=== PATIENT | male | born 1935 | race Caucasian/White ===

== ENCOUNTER 2017-07-26 12:43 | Inpatient (IN) | payer MEDICARE ==
[~2017-07-26] VITALS: Ht 167.6 cm; Wt 82.9 kg
[2017-07-26 12:45] VITALS: BP 144/90; PULSE 120; RESP 16; TEMP 98.4; O2SAT 98
[2017-07-26] MEDS ORDERED: MULTTAB67 PO (13:10)
[2017-07-26] MEDS ORDERED: SODIUM CHLORIDE 0.9% FLUSH 10 ML FLUSH IVF PRN (13:15)
--- NOTE | 2017-07-26 13:21 | PD ---
HPI Chief Complaint: Neuro Symptoms/ Deficits Time Seen by Provider: 13:05 Travel History International Travel<30 days: No Contact w/Intl Traveler<30days: No Traveled to known affect area: No History of Present Illness HPI This is an 82-year-old male with history of prostate cancer treated 10 years ago with radiation, in remission since then reportedly, who presents for evaluation. He reports over the past month he has had some weakness in the left leg. He has noticed a little bit of weakness in the left arm over the past several days as well. He was seen by neurologist Dr. Cervantes, had outpatient MRI imaging of the brain and lumbar spine without contrast performed yesterday at [facility]. The MRI of the brain reveals "posterior right frontal lobe mass with adjacent vasogenic edema. Vasogenic edema extends into the anterior right parietal lobe. There is associated local mass effect including sulcal effacement and partial effacement of the posterior right lateral ventricle body. No shift of midline structures. This posterior right frontal lobe mass suspicious for either primary or metastatic malignancy." The mass is measuring 3.8 cm AP, 2.3 cm transverse and 3.0 cm cranial caudad. There is no shift of midline structures. MRI of the lumbar spine reveals multilevel degenerative changes and department of multiple transiting nerve roots within their respective subarticular recess. The patient was encouraged to come here for admission, oncology evaluation. His primary care physician is Dr. Madrid. He denies any numbness in the extremities, numbness in the face, blurred vision , headache, slurred speech, facial droop. He denies chest pain, shortness of breath, abdominal pain, nausea, vomiting, fevers, chills. He does endorse occasional spasming sensation on the left leg. He has no other complaints at this time. [facility] Past Surgical History Other Surgery: Yes (VASECTOMY) Social History Alcohol Use: Yes (OCC) Tobacco Use: No Substance Use: No Allergies-Medications (Allergen,Severity, Reaction): Coded Allergies: No Known Allergies (Verified Allergy, Unknown, 07/26/17) Reported Meds & Prescriptions Reported Meds & Active Scripts Active Reported Multiple Vitamin 1 Tab 1 Tab PO DAILY Review of Systems Except as stated in HPI: all other systems reviewed are Neg Physical Exam Narrative GENERAL: Well-developed well-nourished male in no acute distress SKIN: Warm and dry. HEAD: Atraumatic. Normocephalic. EYES: Pupils equal and round. No scleral icterus. No injection or drainage. ENT: No nasal bleeding or discharge. Mucous membranes pink and moist. NECK: Trachea midline. No JVD. CARDIOVASCULAR: Regular rate and rhythm. No murmur appreciated. RESPIRATORY: No accessory muscle use. Clear to auscultation. Breath sounds equal bilaterally. GASTROINTESTINAL: Abdomen soft, non-tender, nondistended. Hepatic and splenic margins not palpable. MUSCULOSKELETAL: No obvious deformities. 3 out of 5 muscle strength left ankle dorsi and plantar flexion. 4/5 muscle strength left leg and hip flexion and extension, left arm gyroscopic instrument mechanic strength, arm flexion and extension, shoulder abduction and adduction. Remainder of strength examination is 5 out of 5 muscle strength. NEUROLOGICAL: Awake and alert. No obvious cranial nerve deficits. Motor grossly within normal limits. Normal speech. The patient has sensation to sharp and dull touch to the lower extremities. PSYCHIATRIC: Appropriate mood and affect; insight and judgment normal. Data Data Last Documented VS Vital Signs Date Time Temp Pulse Resp B/P (MAP) Pulse Ox O2 Delivery O2 Flow Rate FiO2 07/26/17 12:45 98.4 120 16 144/90 (108) 98 Orders Orders Electrocardiogram (07/26/17 13:11) Prothrombin Time / Inr (Pt) (07/26/17 13:11) Act Partial Throm Time (Ptt) (07/26/17 13:11) Complete Blood Count With Diff (07/26/17 13:11) Comprehensive Metabolic Panel (07/26/17 13:11) Chest, Single Ap (07/26/17 13:11) Ecg Monitoring (07/26/17 13:11) Iv Access Insert/Monitor (07/26/17 13:11) Oximetry (07/26/17 13:11) Sodium Chloride 0.9% Flush (Ns Flush) (07/26/17 13:15) Dexamethasone Inj (Decadron Inj) (07/26/17 14:00) Admit Order (Ed Use Only) (07/26/17 13:38) Labs Laboratory Tests Test 07/26/17 13:15 White Blood Count 8.9 TH/MM3 Red Blood Count 5.31 MIL/MM3 Hemoglobin 16.9 GM/DL Hematocrit 48.1 % Mean Corpuscular Volume 90.7 FL Mean Corpuscular Hemoglobin 31.8 PG Mean Corpuscular Hemoglobin Concent 35.0 % Red Cell Distribution Width 14.1 % Platelet Count 261 TH/MM3 Mean Platelet Volume 9.7 FL Neutrophils (%) (Auto) 74.9 % Lymphocytes (%) (Auto) 17.6 % Monocytes (%) (Auto) 6.3 % Eosinophils (%) (Auto) 0.7 % Basophils (%) (Auto) 0.5 % Neutrophils # (Auto) 6.7 TH/MM3 Lymphocytes # (Auto) 1.6 TH/MM3 Monocytes # (Auto) 0.6 TH/MM3 Eosinophils # (Auto) 0.1 TH/MM3 Basophils # (Auto) 0.0 TH/MM3 CBC Comment DIFF FINAL Differential Comment MDM Medical Decision Making Medical Screen Exam Complete: Yes Emergency Medical Condition: Yes Medical Record Reviewed: Yes Differential Diagnosis Primary intracranial malignancy versus metastatic malignancy versus intracranial abscess versus cyst versus CVA Narrative Course The patient will be placed on ECG monitoring and pulse oximetry. Plan is for basic lab work, chest x-ray, 12-lead EKG. Oncology, neurosurgery will be paged. 1338: Discussed the MRI findings with neurosurgeon electronic publisher Dr. Andrade who would like the patient admitted to his service, Decadron 6 mg IV every 8. Discussed these recommendations with the patient and at bedside who are agreeable. Diagnosis Primary Impression: Intracranial mass Additional Impressions: Left arm weakness Left leg weakness Admitting Information Admitting Physician Requests: Admit Bryan Winn Jul 26, 2017 13:21
[2017-07-26 13:39] LABS: AUTOMATED NEUTROPHIL # 6.7 TH/MM3 (1.8-7.7); BASOPHIL % 0.5 % (0.0-2.0); EOSINOPHIL # 0.1 TH/MM3 (0-0.4); EOSINOPHIL % 0.7 % (0.0-4.0); HEMATOCRIT 48.1 % (39.0-51.0); HEMO FLAGS DIFF FINAL; LYMPH % 17.6 % (9.0-44.0); LYMPHOCYTE # 1.6 TH/MM3 (1.0-4.8); MEAN CELL VOLUME 90.7 FL (80.0-100.0); MEAN CORPUSCULAR HEMOGLOBIN 31.8 PG (27.0-34.0); MONO % 6.3 % (0.0-8.0); NEUT % 74.9 % (16.0-70.0); PLATELET COUNT 261 TH/MM3 (150-450); RED BLOOD COUNT 5.31 MIL/MM3 (4.50-5.90); RED CELL DISTRIBUTION WIDTH 14.1 % (11.6-17.2); WHITE BLOOD COUNT 8.9 TH/MM3 (4.0-11.0)
[2017-07-26 13:47] LABS: APTT (PATIENT) 28.9 SEC (24.3-30.1)
[2017-07-26 13:55] LABS: ALT (GPT) 34 U/L (12-78); ANION GAP 8 MEQ/L (5-15); AST (GOT) 20 U/L (15-37); BICARBONATE 25.6 MEQ/L (21.0-32.0); BLOOD UREA NITROGEN 17 MG/DL (7-18); CHLORIDE 103 MEQ/L (98-107); GLOMERULAR FILTRATION RATE 86 ML/MIN (>89); POTASSIUM 3.7 MEQ/L (3.5-5.1); SODIUM (NA) 137 MEQ/L (136-145)
[2017-07-26 13:57] LABS: ALKALINE PHOSPHATASE 53 U/L (45-117); TOTAL BILIRUBIN ADULT 0.7 MG/DL (0.2-1.0)
--- NOTE | 2017-07-26 14:10 | HHI.HP ---
(Michael Abbott) [facility] Primary Care Physician Gildardo Madrid M.D. Chief Complaint: Weakness to the left lower leg and foot Muscle spasms to the left lower leg and foot History of Present Illness This is an 82-year-old male who presents to the emergency department at [facility] after having been encouraged to come to this facility following abnormal findings on an MRI of the brain yesterday () at [facility]. Per the EMR the MRI demonstrated a posterior right frontal lobe mass with vasogenic edema extending into the anterior right parietal lobe. There is associated local mass effect with effacement but no midline shift. The mass was suspicious for either a primary or metastatic malignancy. He also had an MRI of the lumbar spine that demonstrated multilevel degenerative changes. The patient reports a history of weakness to the left lower extremity below the knee for the past month as well as spasms to the area. He denies any pain, numbness or tingling associated with this. He denies any weakness to the left upper extremity but was told that when he has been evaluated some weakness had been noted. His and son report that there is swelling and coolness to the area as well. He does report four falls within the past month as well as one in April of this year. His son states that the patient does have difficulty getting up which the patient endorses. The patient was seen by Dr Cervantes (Neurology) for the weakness and he ordered the outpatient MRI. He does report a remote history of prostate cancer for which he was treated and that for the past ten years his PSA level was less than 0.5. (Michael Abbott) Review of Systems CONSTITUTIONAL: Patient denies any fever, chills, night sweats or changes in weight or appetite. HEENT: Patient is hard of hearing. He denies any blurry or double vision or any other visual difficulty. RESPIRATORY: Patient denies any shortness of breath, wheezing or productive cough. CARDIOVASCULAR: Patient has some swelling to the left lower leg. He denies any chest pain, palpitations or irregular heartbeat. GASTROINTESTINAL: Patient denies any abdominal pain, nausea, vomiting or incontinence of stool. GENITOURINARY: Patient has urgency. He denies any increase in frequency, dysuria or incontinence of urine. INTEGUMENTARY: Patient has a cata to the top of the head where he struck it in a fall. He denies any rashes, ulcerations or other lesions. MUSCULOSKELETAL: Patient has weakness below the left knee as well as spasms. He denies any pain to the neck, back or extremities or any other extremity weakness. HAEMATOLOGICAL/LYMPHATIC: Patient denies any bleeding tendencies or easy bruising. He denies any swollen glands. NEUROLOGICAL: Patient has weakness below the left knee. He denies any headache, dizziness, numbness, tingling or other weakness. PSYCHIATRIC: Patient denies any depression or anxiety. ENDOCRINE: Patient denies any increase in thirst, hunger or urination. He denies any intolerance to heat or cold. 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 Erectile dysfunction Prostate cancer Reflux Sciatica (40 yrs ago) Sleep apnea (not diagnosed) Elevated blood pressure (trending up per patient & ) Past Surgical History Vasectomy Active Ordered Medications Current Medications Medications (Trade) Dose Ordered Sig/Ariel Route Start Time Stop Time Status Last Admin (NS Flush) 2 ml UNSCH PRN IVF 07/26/17 13:15 (Decadron Inj) 6 mg Q8HR IV PUSH 07/26/17 14:00 Family History Father: Mesothelioma Mother: Early onset Alzheimer's Social History 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 HEENT: Normocephalic, small reddish cata to the right-sided crown NTTP. PERRLA 3 mm brisk, EOMI. Right TM obscured by cerumen, left TM pearly connelly, no otorrhea , no lesions to the canal or external ear. Nares moist & pink, no rhinorrhea. MMM & pink, no evident lesions, tongue midline to protrusion. NECK: Midline cervical spine NTTP, full active ROM w/o pain, no JVD, trachea midline. RESPIRATORY: CTAB w/o W/R/R, equal excursion, nonlaboured, on RA. CARDIOVASCULAR: S1S2 w/regular but rapid rate w/o M/G/R, radial & pedal pulses 2 + bilaterally, cap refill < 2 sec, 1+ pedal edema on left. Monitor is sinus tachycardia (101 to 124) w/o any ectopy noted. GASTROINTESTINAL: Abdomen rotund, soft, nontender, no palpable masses or organomegaly, positive bowel sounds to all quadrants. GENITOURINARY: Normal male genitalia. INTEGUMENTARY: Skin warm & dry, small reddish cata to the right-sided crown, no discolouration, rashes, ulcerations or other lesions. MUSCULOSKELETAL: RAHMAN but decreased to distal LLE, no evident deformity or clubbing. PSYCHIATRIC: Normal affect, readily interacts & smiles. NEUROLOGICAL: AAOx3. Speech clear & appropriate. Follows simple commands w/o difficulty. CN II-XII appear grossly intact except for VIII, patient does have a hearing aid in place. Sensation intact to light touch to the extremities. Motor strength: RUE: Deltoid, biceps, triceps, wrist flexors & extensors and hand intrinsics & extrinsics 5/5. RLE: Iliopsoas, quadriceps, hamstrings, tibialis anterior, tibialis posterior , peroneus longus & brevis, gastrocnemius and extensor hallucis longus 5/5. LUE: Deltoid: 5/5; Biceps: 4 to 4+/5; Triceps: 4 to 4+/5; Wrist flexors & extensors: 4+ to 5/5; Hand intrinsics & extrinsics: 4+/5 LLE: Iliopsoas: 5/5; Quadriceps: 4+/5; Hamstrings: 3+ to 4/5; Tibialis anterior: 0/5; Tibialis posterior: 0/5; Peroneus longus & brevis: 0/5; Gastrocnemius: 0/5; Extensor hallucis longus: 0/5. No ankle clonus. No Bennett's. Plantar response downward on right and appears neutral on left (patient pulled foot away). Laboratory Laboratory Tests Test 07/26/17 13:15 White Blood Count 8.9 Red Blood Count 5.31 Hemoglobin 16.9 Hematocrit 48.1 Mean Corpuscular Volume 90.7 Mean Corpuscular Hemoglobin 31.8 Mean Corpuscular Hemoglobin Concent 35.0 Red Cell Distribution Width 14.1 Platelet Count 261 Mean Platelet Volume 9.7 Neutrophils (%) (Auto) 74.9 Lymphocytes (%) (Auto) 17.6 Monocytes (%) (Auto) 6.3 Eosinophils (%) (Auto) 0.7 Basophils (%) (Auto) 0.5 Neutrophils # (Auto) 6.7 Lymphocytes # (Auto) 1.6 Monocytes # (Auto) 0.6 Eosinophils # (Auto) 0.1 Basophils # (Auto) 0.0 CBC Comment DIFF FINAL Differential Comment Prothrombin Time 11.0 Prothromb Time International Ratio 1.0 Activated Partial Thromboplast Time 28.9 Blood Urea Nitrogen 17 Creatinine 0.86 Random Glucose 216 Total Protein 7.6 Albumin 3.9 Calcium Level 8.9 Alkaline Phosphatase 53 Aspartate Amino Transf (AST/SGOT) 20 Alanine Aminotransferase (ALT/SGPT) 34 Total Bilirubin 0.7 Sodium Level 137 Potassium Level 3.7 Chloride Level 103 Carbon Dioxide Level 25.6 Anion Gap 8 Estimat Glomerular Filtration Rate 86 (Michael Abbott) Result Diagram: 07/26/175 07/26/171314 Caprini VTE Risk Assessment Caprini VTE Risk Assessment: Mod/High Risk (score >= 2) VTE Pharm Contraindication: Intracranial lesions Caprini Risk Assessment Model Point Value = 1 Point Value = 2 Point Value = 3 Point Value = 5 Age 41-60 Minor surgery BMI > 25 kg/m2 Swollen legs Varicose veins or History of unexplained or recurrent spontaneous Oral contraceptives or hormone replacement Sepsis (< 1 month) Serious lung disease, including pneumonia (< 1 month) Abnormal pulmonary function Acute myocardial infarction Congestive heart failure (< 1 month) History of inflammatory bowel disease Medical patient at bed rest Age 61-74 Arthroscopic surgery Major open surgery (> 45 min) Laparoscopic surgery (> 45 min) Malignancy Confined to bed (> 72 hours) Immobilizing plaster cast Central venous access Age >= 75 History of VTE Family history of VTE Factor V Leiden Prothrombin [id number] Lupus anticoagulant Anticardiolipin antibodies Elevated serum homocysteine Heparin-induced thrombocytopenia Other congenital or acquired thrombophilia Stroke (< 1 month) Elective arthroplasty Hip, pelvis, or leg fracture Acute spinal cord injury (< 1 month) Prophylaxis Regimen Total Risk Factor Score Risk Level Prophylaxis Regimen 0-1 Low Early ambulation 2 Moderate Order ONE of the following: *Sequential Compression Device (SCD) *Heparin 5000 units SQ BID 3-4 Higher Order ONE of the following medications: *Heparin 5000 units SQ TID *Enoxaparin/Lovenox 40 mg SQ daily (WT < 150 kg, CrCl > 30 mL/min) *Enoxaparin/Lovenox 30 mg SQ daily (WT < 150 kg, CrCl > 10-29 mL/min) *Enoxaparin/Lovenox 30 mg SQ BID (WT < 150 kg, CrCl > 30 mL/min) AND/OR *Sequential Compression Device (SCD) 5 or more Highest Order ONE of the following medications: *Heparin 5000 units SQ TID (Preferred with Epidurals) *Enoxaparin/Lovenox 40 mg SQ daily (WT < 150 kg, CrCl > 30 mL/min) *Enoxaparin/Lovenox 30 mg SQ daily (WT < 150 kg, CrCl > 10-29 mL/min) *Enoxaparin/Lovenox 30 mg SQ BID (WT < 150 kg, CrCl > 30 mL/min) AND *Sequential Compression Device (SCD) (Michael Abbott) Assessment and Plan Diagnosis: (1) Intracranial mass ICD Codes: R90.0 - Intracranial space-occupying lesion found on diagnostic imaging of central nervous system Status: Acute (2) Left leg weakness ICD Codes: R29.898 - Other symptoms and signs involving the musculoskeletal system Status: Acute (3) Left arm weakness ICD Codes: R29.898 - Other symptoms and signs involving the musculoskeletal system Status: Acute Assessment and Plan Impression: Posterior right frontal lobe mass. Patient is doing well in general. Left-sided weakness. Plan: Admit to Neurosurgery. MRI brain stealth w/o & w/contrast. Neuro checks q4h while awake. Vital signs q4h while awake. Regular diet. Mobilise w/assistance. PT & OT eval & tx. SCD bilaterally. (Michael Abbott) Attending Statement I have personally seen and examined the patient on the date of this note. Pertinent documentation and study results have been reviewed by the undersigned. I have personally developed the treatment plan and performed medical decision making. Agree with findings, exam, and treatment plan as noted above. On my examination 07/26/17 the patient has mostly mild left upper and moderate proximal, severe distal left lower extremity motor deficit. MRI images have been reviewed by the undersigned as well as with the patient and his family. Treatment options a been discussed. Plan to proceed with screening CT scan of the chest, abdomen, pelvis. If no other significant lesions are found, surgical intervention for biopsy versus resection of the lesion discussed with the family along with pros and cons of each. Decadron initiated. Non-chemical DVT prophylaxis pending possible surgery as well as increased risk of hemorrhage for neoplasm. Physical therapy consult placed All patient and family questions answered. (Chetan Andrade MD) Michael Abbott Jul 26, 2017 14:10 Chetan Andrade MD Jul 26, 2017 22:42
[2017-07-26] MEDS: DEXAMETHASONE SOD PHOS 4 MG/ML VIAL IV PUSH SCH ×2 (14:20→22:54)
[2017-07-26 14:21] VITALS: RESP 18; O2SAT 98
[2017-07-26 14:25] VITALS: BP 122/88; PULSE 107; RESP 18; O2SAT 97
--- NOTE | 2017-07-26 14:31 | RADRPT ---
EXAM DATE/TIME: 07/26/2017 13:47 [facility] COMPARISON: No previous studies available for comparison. INDICATIONS : Left side weakness. MEDICAL HISTORY : just found out mass on frontal lobe SURGICAL HISTORY : None. ENCOUNTER: Initial ACUITY: 1 day PAIN SCORE: 0/10 LOCATION: Bilateral chest FINDINGS: A single view of the chest demonstrates the lungs to be symmetrically aerated without evidence of mas s, infiltrate or effusion. The cardiomediastinal contours are unremarkable. Osseous structures are intact. CONCLUSION: 1. No acute cardiopulmonary disease. Fran Kay MD on July 26, 2017 at 14:29 Board Certified Radiologist. This report was verified electronically.
[2017-07-26] MEDS ORDERED: GADODIAMIDE PF 287 MG/ML 20 ML VIAL (for RAD MRI) IVCONTRAST ONE (16:17)
--- NOTE | 2017-07-26 16:47 | RADRPT ---
EXAM DATE/TIME: 07/26/2017 16:04 [facility] COMPARISON: No previous studies available for comparison. INDICATIONS : Mass. Left sided weakness. CONTRAST: 17 cc Omniscan (gadodiamide) IV MEDICAL HISTORY : None. SURGICAL HISTORY : Vasectomy. ENCOUNTER: Subsequent ACUITY: 1 day PAIN SCORE: 3/10 LOCATION: cranial TECHNIQUE: Multiplanar, multisequence MRI of the brain was performed both prior to and following the administrat ion of paramagnetic contrast. FINDINGS: There is a 3.7 x 2.2 x 3.3 cm enhancing mass in the right medial posterior parietal high convexities with an adjacent satellite lesion measuring 2.1 x 0.5 cm and moderate associated edema. Both lesions demonstrate decreased T1 and increased T2 signal. There is no significant adjacent subarachnoid or du ral enhancement. No significant herniation. No additional abnormal enhancement or focal mass are demo nstrated. There is overall moderate diffuse cerebral volume loss with associated ex vacuo dilatation of the lateral ventricles. No evidence for significant hydrocephalus. No extra-axial fluid collection s or hemorrhage. The cerebellum and brainstem are intact. The 4th ventricle is midline. The cerebell opontine angle is unremarkable. The cerebellar tonsils are normal in position. The visualized portio ns of the orbits and paranasal sinuses are unremarkable. CONCLUSION: 1. 3.7 x 2.2 x 3.3 cm intra-axial enhancing mass in the right medial posterior parietal high convexit ies with an adjacent small 2.1 x 2.5 cm satellite lesion and moderate associated edema. Differential considerations include metastatic disease versus GBM amongst other etiologies. No evidence for mening eal extension or carcinomatosis. No hydrocephalus or significant hemorrhage. Fran Kay MD on July 26, 2017 at 16:35 Board Certified Radiologist. This report was verified electronically.
[2017-07-26 17:10] VITALS: BP 140/86; PULSE 88; RESP 17; TEMP 97.7; O2SAT 97
[2017-07-26 20:00] VITALS: BP 124/79; PULSE 119; RESP 18; TEMP 98.1; O2SAT 94
[2017-07-27] VITALS: BP 100/59; PULSE 112; RESP 18; TEMP 99; O2SAT 94
[2017-07-27 04:00] VITALS: BP 136/84; PULSE 91; RESP 18; TEMP 98.2; O2SAT 94
--- NOTE | 2017-07-27 05:14 | EKG ---
Date Performed: 07/26/2017 Time Performed: 13:56:05 PTAGE: 82 years EKG: SINUS TACHYCARDIA MARKED LEFT AXIS DEVIATION POSSIBLE ANTERIOR MYOCARDIAL INFARCTION ABNORM AL ECG NO PREVIOUS TRACING DOCTOR: Daniele Demarco Interpretating Date/Time 07/27/2017 05:07:51
[2017-07-27] MEDS: DEXAMETHASONE SOD PHOS 4 MG/ML VIAL IV PUSH SCH ×3 (05:51→22:42)
[2017-07-27 08:00] VITALS: BP 129/75; PULSE 106; RESP 18; TEMP 97.2; O2SAT 94
[2017-07-27] MEDS ORDERED: IOHEXOL 350 MG/ML 10 ML VIAL (for RAD DIAG) IVCONTRAST ONE (08:52)
--- NOTE | 2017-07-27 09:17 | RADRPT ---
EXAM DATE/TIME: 07/27/2017 08:51 [facility] COMPARISON: No previous studies available for comparison. INDICATIONS : Evaluate for metastatic disease. IV CONTRAST: 91 cc Omnipaque 350 (iohexol) IV ; Cumulative dose for multiple exams. ORAL CONTRAST: No oral contrast ingested. RADIATION DOSE: 16.39 CTDIvol (mGy) ; Combined studies - Thorax/Abdomen/Pelvis MEDICAL HISTORY : Carcinoma, basal cell. Brain tumor. SURGICAL HISTORY : vasectomy. ENCOUNTER: Initial ACUITY: 1 day PAIN SCALE: 0/10 LOCATION: Bilateral abdomen TECHNIQUE: Volumetric scanning of the abdomen and pelvis was performed. Using automated exposure control and ad justment of the mA and/or kV according to patient size, radiation dose was kept as low as reasonably achievable to obtain optimal diagnostic quality images. DICOM format image data is available electro nically for review and comparison. FINDINGS: The limited portion of the lung base visualized is clear. There is some punctate, scattered low-attenuation lesions within the liver most likely representing s imple cyst. The spleen, pancreas, adrenal glands and left kidney are normal in appearance. Incidental note is mad e of a 1.2 cm simple cyst within the right kidney. There is no free intraperitoneal air. No free intraperitoneal fluid is identified. There is no retrop eritoneal lymphadenopathy. The aorta is normal in caliber. The visualized loops of small and large bowel demonstrate a moderate amount of stool within the colon but are otherwise unremarkable. No findings to indicate bowel obstruction are seen. The anterior abdominal wall is intact. No free intraperitoneal air or free intraperitoneal fluid is identified. There is no free fluid within the pelvis. No iliac or inguinal adenopathy is present. The visualized loops of small and large bowel within the pelvis are unremarkable. The visualized bony structures demonstrate mild degenerative changes but are otherwise intact. CONCLUSION: 1. There is some scattered low-attenuation lesions within the liver. The largest of these measures ap proximately 1.7 cm. They're most compatible with simple cysts. 2. No definite findings to indicate metastatic disease to the abdomen are identified. Sunil Duran MD on July 27, 2017 at 9:13 Board Certified Radiologist. This report was verified electronically.
--- NOTE | 2017-07-27 09:19 | RADRPT ---
EXAM DATE/TIME: 07/27/2017 08:51 [place] COMPARISON: No previous studies available for comparison. INDICATIONS : Evaluate for metastatic disease. IV CONTRAST: 91 cc Omnipaque 350 (iohexol) IV ; Cumulative dose for multiple exams. RADIATION DOSE: 16.39 CTDIvol (mGy) ; Combined studies - Thorax/Abdomen/Pelvis MEDICAL HISTORY : Carcinoma, basal cell. Brain tumor. SURGICAL HISTORY : vasectomy. ENCOUNTER: Initial ACUITY: 1 day PAIN SCALE: 0/10 LOCATION: Bilateral chest TECHNIQUE: Volumetric scanning of the chest was performed. Using automated exposure control and adjustment of t he mA and/or kV according to patient size, radiation dose was kept as low as reasonably achievable to obtain optimal diagnostic quality images. DICOM format image data is available electronically for review and comparison. Follow-up recommendations for detected pulmonary nodules are based at a minimum on nodule size and pa tient risk factors according to Fleischner Society Guidelines. FINDINGS: LUNGS: The examination demonstrates a 1.0 x 0.8 cm pleural-based nodule along the posterior aspect of the ri ght lower lobe. This is nonspecific in appearance. Follow up examination in 6 months to document stab ility would be warranted. The lungs are otherwise clear. PLEURA: There is no pleural thickening or pleural effusion. MEDIASTINUM: The heart is normal in size. There is atherosclerotic plaquing of the coronary arteries. AXILLAE: Within normal limits. No lymphadenopathy. SKELETAL: There are mild degenerative changes within the thoracic spine. MISCELLANEOUS: The visualized upper abdominal organs demonstrate no acute abnormality. CONCLUSION: 1. There is a 1 cm pleural-based nodule seen in the posterior aspect of the right lower lobe. This stewart s an appearance most consistent with scarring. Followup exam in 6 months document stability would be warranted. 2. The lungs are otherwise clear. Sunil Duran MD on July 27, 2017 at 9:16 Board Certified Radiologist. This report was verified electronically.
[2017-07-27 12:00] VITALS: BP 135/92; PULSE 97; RESP 18; TEMP 97.5; O2SAT 95
--- NOTE | 2017-07-27 12:56 | MB ---
cc: NATHANAEL ALVAREZ MD HERDEL, G. FREDERICK M.D. TRAPANI, VINCENTI C. M.D. DATE OF CONSULTATION: 07/27/2017 DATE OF : [address] Richard Madrid, [facility]. CONSULT REQUESTED BY: Dr. Andrade, Neurosurgery. REASON FOR CONSULTATION Intracranial mass measuring 3.7 cm identified in the right medial posterior parietal lobe, associated with significant Vasogenic edema. Findings concerning for primary malignancy of the central nervous system. CHIEF COMPLAINT Mr. Cline reports a six-week history of progressive weakness localized to the left leg and ankle. He also reports a five day history of progressive weakness of his left upper extremity. HISTORY OF PRESENT ILLNESS Mr. Cline is very pleasant 82-year-old male who is originally from the [facility]. He lives at home with his . 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 Mr. Cline reports being in his usual excellent state of health up until the late part of May 2017. He reports having traveled an extensive amount in the months prior and clocked over [address] [place] between [place] for speaking engagements. He began to notice weakness of his left foot starting in late May. He describes his foot as not been responsive. He denies numbness or pain. He reported these symptoms to Dr. Caceres nurse practitioner and he was prescribed corticosteroids as the cause of the weakness was thought to be inflammation. The patient was referred to orthopedic surgery and was evaluated by Dr. Kim who felt this was more for neurologic issue. The patient was then referred to Dr. Cervantes who recommended imaging studies of the lumbar spine and brain. Imaging studies were done last week and the patient was called on 07/26/2017 and advised to go directly to [facility] for further workup and evaluation due to findings of a mass in the parietal lobe. Upon presentation [place] he was noted on clinical exam to have weakness of the left upper extremity and left lower extremities. An MRI of the brain was repeated on 07/26/2017 with and without contrast. He was noted to have a 3.7 x 2.2 cm mass which was enhancing involving the right medial posterior parietal convexity. There was a smaller 2.1 x 2.5 cm satellite lesion with moderate edema associated with this. Findings were concerning for primary [employer]ARK [employer] malignancy. Since admission the patient has also undergone CT imaging of the abdomen and pelvis as well as chest. Other than benign appearing hepatic cysts and a scar in the lung. He was found to have no definite primary site in the in the torso identified. The patient has been initiated on corticosteroids for management of the vasogenic edema and he has been evaluated neurosurgery for possible craniotomy with excisional biopsy of the lesion. PAST MEDICAL HISTORY Early stage prostate carcinoma diagnosed in 2005 which was treated with external beam radiation. Borderline hypertension. Multiple non-melanoma cutaneous carcinomas including squamous cell and basal cell carcinoma of the scalp. PAST SURGICAL HISTORY Prostate biopsies. Vasectomy. Multiple excisions of non-melanoma skin malignancies. SOCIAL HISTORY The patient lives at home with his . He is a lifelong never smoker, he drinks about 3 ounces of wine two to three times a week. He is a retired from the [employer]. FAMILY HISTORY: The patient does have four children, he has a 46-year-old daughter with Down syndrome, his other three children are healthy. Father of mesothelioma Mom in her mid 60s of Alzheimer's disease. HEALTH CARE MAINTENANCE Colonoscopy was last performed 10 years ago, he was due this year. ALLERGIES NO KNOWN DRUG ALLERGIES. CURRENT INPATIENT MEDICATIONS Dexamethasone 6 mg IV q.8 h. REVIEW OF SYSTEMS 13-point review of systems were obtained the following the pertinent positives: The patient denies fevers, chills, night sweats, with, weight loss. HEENT: Denies headaches, blurry vision, difficulty swallowing or soreness in the throat. RESPIRATORY: Denies difficulty breathing, cough, hemoptysis, pleuritic chest pain. CARDIOVASCULAR SYSTEM: Denies angina-like chest pain, PND, orthopnea. GASTROINTESTINAL: Denies nausea, vomiting, diarrhea hematochezia, melena. GENITOURINARY: Denies dysuria, hematuria, urinary incontinence. MUSCULOSKELETAL: Denies any focal musculoskeletal aches and pains. CENTRAL NERVOUS SYSTEM: Reports focal weakness involving the left leg distally and of the left upper extremity. SKIN: No complaints. PHYSICAL EXAMINATION VITAL SIGN: Temperature 97.2 degrees Fahrenheit, heart rate 106 beats per minute, respiratory rate 18, blood pressure 129/75, O2 sats 94% on room air. GENERAL APPEARANCE: Mr. Cline is an elderly male, he is sitting up in bed, he appears to be no acute distress and has a pleasant disposition. HEAD, EYES, EARS, NOSE, AND THROAT: Head atraumatic, normocephalic, conjunctive are not pale sclerae anicteric, extraocular muscles intact, Pupils equal, round, reactive to light and accommodation. Oral exam no pharyngeal erythema. NECK: Neck exam no palpable cervical or supraclavicular adenopathy. RESPIRATORY: Good air movement bilaterally not breath sounds. CARDIOVASCULAR SYSTEM: Regular rate and rhythm, S1-S2. No obvious murmurs, gallops. ABDOMEN: Protuberant belly, soft and nontender, nondistended palpable organ enlargement specifically no hepatosplenomegaly. EXTREMITIES: Lower extremities; no pretibial edema or calf tenderness. CENTRAL NERVOUS SYSTEM: Right upper and lower extremities with 02/22 motor strength, muscle tone and strength. In the left lower extremity: The patient has decreased ability to flex the left foot, he is unable to extend the left foot. He has decreased muscle tone of the left calf. Left upper extremity. He has four x five strength. SKIN: No abnormalities identified. LABORATORY FINDINGS: Blood work dated 07/26/2017: WBC count 8.9, hemoglobin 17 gm/dl, hematocrit 48.1%, platelet count 261, absolute neutrophil count 6.7. Chemistries: Sodium 137, potassium 3.7, chloride 103, bicarb 25.6, BUN 17, creatinine 0.86, EGFR 86 mls per minute. Glucose to 10/26, calcium 8.9, total bilirubin 0.7, AST 20, ALT 34, alkaline phosphatase 53, albumin is 3.9. IMAGING STUDIES MRI of the brain with and without contrast dated 07/26/2017 indicates a 3.7 x 2.2 x 3.3 cm intraaxillial enhancing mass in the right medial posterior parietal convexity. There is an adjacent lesion which is 2.1 x 2.5 cm. Surrounding vasogenic edema is identified, no hydrocephalus or significant hemorrhages noted. CT scan of the thorax dated 07/27/2017: 1. There is a 1 cm pleural based nodule in the posterior aspect of the right lower lobe. This has an appearance consistent with scarring. The lungs are otherwise clear, mediastinum is otherwise clear. CT abdomen and pelvis with and without contrast: Indicates scattered low-attenuation lesions within the liver. The largest of these measures 1.7 cm. These are most compatible with hepatic simple cysts. No definite evidence of metastatic disease within the abdomen or pelvis, specifically no lymphadenopathy or adrenal lesions. ASSESSMENT Mr. Cline is an 82-year-old male with a 3.7 cm mass involving the right parietal lobe, the tumor is intra axial and sits high in the convexity. He presents with left lower extremity weakness which started about six weeks ago and also left upper extremity weakness which started about one week ago. The patient has no evidence of extracranial malignancy or pathology. He has been admitted to this hospital for neurosurgical evaluation. He is scheduled to undergo to undergo an open biopsy and possible excision at some point next week to identify this lesion. The primary differential diagnosis is a high-grade Glioma. RECOMMENDATIONS 1. Intra-axial mass with extensive vasogenic edema in the right parietal lobe of the brain: Agree with open biopsy and if needed, maximum face surgical resection. If pathologic findings on cold section indicates a glioblastoma multiforme I would prefer this the patient have a carmustine wafer placed in the tumor cavity. I did talk to the patient and his about the potential differential diagnoses which range from high-grade gliomas to intermediate and low grade gliomas, as well as primary [employer] lymphoma. I explained to them that treatment options vary depending on the diagnosis. I advised them to remain patient until we have final pathology available before we discussed the details of postoperative management. The patient and his understand. The oncology service will continue following with you. I would also reviewed the CT scan of the abdomen and pelvis as well as chest. There is no extracranial pathology identified. MD RADHA Mcintosh/amilcar /11:32 AM /12:28 PM
[2017-07-27 16:00] VITALS: BP 132/76; PULSE 102; RESP 18; TEMP 98.1; O2SAT 95
--- NOTE | 2017-07-27 17:24 | HHI.NSPN ---
History Chief Complaint: no new complaints Interval History 82-year-old male with approximately 1 month of progressive weakness initially left lower and more recently left upper extremity. Recent outpatient MRI with right parietal brain lesion. Exam Results Vital Signs Date Time Temp Pulse Resp B/P (MAP) Pulse Ox O2 Delivery O2 Flow Rate FiO2 07/27/17 16:00 98.1 102 18 132/76 (94) 95 07/26/17 14:25 Room Air Intake and Output 07/27/17 07/27/17 07/28/17 08:00 16:00 00:00 Intake Total 480 ml Output Total 200 ml 400 ml Balance -200 ml 80 ml Physical Examination Respirations clear to auscultation Cardiac regular without murmur Abdomen soft nontender No extremity edema Awake and alert oriented conversant and appropriate Speech is clear No anxiety or depression evident Extraocular movements intact Initially movement symmetric Sensation intact light touch all extremities Strength is mostly 4/5 left upper and 3-4/5 left lower extremity major flexion and extension groups except for absent tibialis anterior and 3/5 gastrocsoleus Medical Decision Making Impression and Plan Impression: 1. 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 CT scan chest abdomen and pelvis without significant abnormalities. Physical examination improved today with reduced left hemiparesis following Decadron administration. 2. Hyperglycemia, likely related to steroids Plan: Findings were discussed at length with the patient and his family in the room today. Oncology notes reviewed. Plan craniotomy for biopsy , possible tumor resection on 07/29/17. The procedure, wrist possible complications fully discussed with the patient and his family and all questions answered. Initiate insulin sliding scale with follow-up laboratory results Chetan Andrade MD Jul 27, 2017 17:24
[2017-07-27] MEDS ORDERED: DEXTROSE 50% IN WATER 50 ML VIAL(D50) IV PUSH PRN (17:30)
[2017-07-27] MEDS ORDERED: GLUCAGON 1 MG/ML VIAL OTHER PRN (17:30)
[2017-07-27 20:43] VITALS: BP 137/73; PULSE 102; RESP 24; TEMP 98.3; O2SAT 94
[2017-07-27] MEDS: INSULIN NovoLIN REGULAR SUPPLEMENTAL SCALE SQ SCH (21:00)
[2017-07-28] VITALS: BP 137/75; PULSE 89; RESP 20; TEMP 98.3; O2SAT 91
[2017-07-28 05:31] VITALS: BP 148/94; PULSE 90; RESP 20; TEMP 97.8; O2SAT 95
[2017-07-28] MEDS: DEXAMETHASONE SOD PHOS 4 MG/ML VIAL IV PUSH SCH ×3 (06:47→22:00)
[2017-07-28 08:00] VITALS: BP_SYST 140; BP_DIAS 92; BP_DIAS 97; PULSE 82; RESP 18; TEMP 97.2; O2SAT 92; O2SAT 97
[2017-07-28] MEDS: INSULIN NovoLIN REGULAR SUPPLEMENTAL SCALE SQ SCH ×4 (08:00→21:00)
[2017-07-28 09:07] LABS: BICARBONATE 24.1 MEQ/L (21.0-32.0); POTASSIUM 3.7 MEQ/L (3.5-5.1)
[2017-07-28] MEDS ORDERED: PNEUMOCOCCAL POLYVALENT INJ 25 MCG/0.5 ML SYR IM ONE (10:00)
--- NOTE | 2017-07-28 10:49 | PD.ONC.PN ---
Subjective Subjective Remarks "I'm a healthy 82 year old with a brain tumor" Afebrile Denies any acute complaints Objective Data Date Time Temp Pulse Resp B/P (MAP) Pulse Ox O2 Delivery O2 Flow Rate FiO2 07/28/17 08:00 97.2 82 18 140/92 (108) 97 07/28/17 08:00 97.2 82 18 140/97 (111) 92 07/28/17 05:31 97.8 90 20 148/94 (112) 95 07/28/17 00:00 98.3 89 20 137/75 (95) 91 07/27/17 20:43 98.3 102 24 137/73 (94) 94 07/27/17 16:00 98.1 102 18 132/76 (94) 95 07/27/17 12:00 97.5 97 18 135/92 (106) 95 07/28/17 07/28/17 07/28/17 07:00 15:00 23:00 Output Total 300 ml Balance -300 ml Result Diagram: 07/26/17 1315 07/28/17 0813 Laboratory Results Laboratory Tests Test 07/28/17 08:13 Blood Urea Nitrogen 25 MG/DL Creatinine 0.74 MG/DL Random Glucose 123 MG/DL Calcium Level 9.3 MG/DL Sodium Level 137 MEQ/L Potassium Level 3.7 MEQ/L Chloride Level 105 MEQ/L Carbon Dioxide Level 24.1 MEQ/L Anion Gap 8 MEQ/L Estimat Glomerular Filtration Rate 102 ML/MIN Administered Medications Medications (Trade) Dose Ordered Sig/Ariel Route PRN Reason Start Time Stop Time Status Last Admin Dose Admin Sodium Chloride (NS Flush) 2 ml UNSCH PRN IVF FLUSH AFTER USING IV ACCESS 07/26/17 13:15 07/26/17 14:20 Dexamethasone Sodium Phosphate (Decadron Inj) 4 mg Q8HR IV PUSH 07/27/17 22:00 07/28/17 06:47 Objective Remarks GENERAL: Elderly male resting in bed in no acute distress SKIN: Warm and dry. HEAD: Normocephalic. EYES: No injection or drainage. Wearing glasses NECK: Supple, trachea midline. No JVD or lymphadenopathy. CARDIOVASCULAR: Regular rate and rhythm without murmurs. RESPIRATORY: Clear anteriorly. Breathing unlabored. GASTROINTESTINAL: Abdomen soft, non-tender, nondistended. EXTREMITIES: No cyanosis. MUSCULOSKELETAL: Adequate muscle tone. NEUROLOGICAL: Awake and alert with normal speech. Strength in the right lower extremity 5/5 and 4/5 on the left. Upper extremity elevator constructor electric strengths are equal with only a slight reduction of strength on the left. Assessment/Plan Problem List: (1) Intracranial mass ICD Codes: R90.0 - Intracranial space-occupying lesion found on diagnostic imaging of central nervous system Status: Acute Plan: -- Pending surgery with Dr. Andrade tomorrow -- On Decadron 4 mg every 8 hours -- MRI of the brain with and without contrast on 07/26/17 shows a 3.7 x 2.2 x 3.3 cm intra-axial enhancing mass in the right medial posterior parietal convexity. There is an adjacent lesion which is 2.1 x 2.5 cm with surrounding vasogenic edema. Assessment Mr. Cline is an 82-year-old male who began to notice weakness of his left foot starting in late May. He describes his foot as not been responsive. He denies numbness or pain. He reported these symptoms to Dr. Caceres nurse practitioner and he was prescribed corticosteroids as the cause of the weakness was thought to be inflammation. The patient was referred to orthopedic surgery and was evaluated by Dr. Kim who felt this was more for neurologic issue. He was seen by Dr. Cervantes who ordered imaging that revealed a brain mass and he was subsequently directed to be admitted for neurosurgical evaluation. Plan 1. Continue Decadron for vasogenic edema. 2. Per Dr Andrade the patient will have craniotomy with biopsy and possible tumor resection tomorrow. 3. It was explained to the patient that the biopsy results may take several days once the surgery is complete. 4. Once pathology results are obtained we will be able to give further recommendations on treatment. 5. Continue to monitor neurological status Maggie Solis Jul 28, 2017 10:49
[2017-07-28 12:00] VITALS: BP 131/85; PULSE 91; RESP 18; TEMP 97.4; O2SAT 93
[2017-07-28] MEDS: METHOCARBAMOL 500 MG TAB PO PRN (13:58)
[2017-07-28 16:00] VITALS: BP 143/88; PULSE 84; RESP 18; TEMP 98; O2SAT 95
--- NOTE | 2017-07-28 19:02 | HHI.NSPN ---
History Chief Complaint: no new complaints Interval History 82-year-old male with approximately 1 month of progressive weakness initially left lower and more recently left upper extremity. Recent outpatient MRI with right parietal brain lesion. Exam Results Vital Signs Date Time Temp Pulse Resp B/P (MAP) Pulse Ox O2 Delivery O2 Flow Rate FiO2 07/28/17 16:00 98.0 84 18 143/88 (106) 95 07/26/17 14:25 Room Air Intake and Output 07/28/17 07/28/17 07/29/17 08:00 16:00 00:00 Output Total 300 ml Balance -300 ml Physical Examination Respirations clear to auscultation Cardiac regular without murmur Abdomen soft nontender No extremity edema Awake and alert oriented conversant and appropriate Speech is clear No anxiety or depression evident Extraocular movements intact Initially movement symmetric Sensation intact light touch all extremities Strength is mostly 4/5 left upper and left lower extremity major flexion and extension groups except for one/5 left tibialis anterior and 3/5 gastrocsoleus Lab, Micro, Other Results Laboratory Tests Test 07/28/17 08:13 Blood Urea Nitrogen 25 MG/DL Creatinine 0.74 MG/DL Random Glucose 123 MG/DL Calcium Level 9.3 MG/DL Sodium Level 137 MEQ/L Potassium Level 3.7 MEQ/L Chloride Level 105 MEQ/L Carbon Dioxide Level 24.1 MEQ/L Anion Gap 8 MEQ/L Estimat Glomerular Filtration Rate 102 ML/MIN Medical Decision Making Impression and Plan Impression: 1. 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 CT scan chest abdomen and pelvis without significant abnormalities. Physical examination remains improved today with reduced left hemiparesis following Decadron administration. 2. Hyperglycemia, likely related to steroids Plan: Findings were discussed at length with the patient and his family in the room today. Oncology notes reviewed. Plan craniotomy for biopsy , possible tumor resection on 07/29/17. The procedure, risks, possible complications fully discussed with the patient and his family and all questions answered. Scheduling discussed again with the operating room and with the patient and family today. In order to arrange technical support for frameless stereotactic imaging for the operating room, the surgery is tentatively scheduled for Chetan Andrade MD Jul 28, 2017 19:02
[2017-07-28 20:00] VITALS: BP 149/96; PULSE 93; RESP 22; TEMP 97.2; O2SAT 95
[2017-07-29] VITALS: BP 133/60; PULSE 85; RESP 18; TEMP 97.3; O2SAT 96
[2017-07-29 04:40] VITALS: BP 128/80; PULSE 72; RESP 19; TEMP 98.8; O2SAT 96
[2017-07-29] MEDS: DEXAMETHASONE SOD PHOS 4 MG/ML VIAL IV PUSH SCH ×3 (05:41→21:41)
[2017-07-29 08:00] VITALS: BP 141/93; PULSE 83; RESP 18; TEMP 97.4; O2SAT 95
[2017-07-29] MEDS: INSULIN NovoLIN REGULAR SUPPLEMENTAL SCALE SQ SCH ×4 (08:00→21:48)
[2017-07-29 12:07] VITALS: BP 145/86; PULSE 90; RESP 18; TEMP 97.1; O2SAT 95
--- NOTE | 2017-07-29 13:05 | HHI.NSPN ---
(Michael Abbott) History Chief Complaint: Still with left-sided weakness. (Michael Abbott) Interval History 07/26: This is an 82-year-old male who presents to the emergency department at [facility] after having been encouraged to come to this facility following abnormal findings on an MRI of the brain yesterday () at [facility]. Per the EMR the MRI demonstrated a posterior right frontal lobe mass with vasogenic edema extending into the anterior right parietal lobe. There is associated local mass effect with effacement but no midline shift. The mass was suspicious for either a primary or metastatic malignancy. He also had an MRI of the lumbar spine that demonstrated multilevel degenerative changes. The patient reports a history of weakness to the left lower extremity below the knee for the past month as well as spasms to the area. He denies any pain, numbness or tingling associated with this. He denies any weakness to the left upper extremity but was told that when he has been evaluated some weakness had been noted. His and son report that there is swelling and coolness to the area as well. He does report four falls within the past month as well as one in April of this year. His son states that the patient does have difficulty getting up which the patient endorses. The patient was seen by Dr Cervantes (Neurology) for the weakness and he ordered the outpatient MRI. He does report a remote history of prostate cancer for which he was treated and that for the past ten years his PSA level was less than 0.5. 07/29: The patient is sitting in the chair with his family in the room. He says he is doing good this afternoon. He reports that he still has the weakness of the left but does feel the upper extremity is stronger. He states that the muscle spasms/cramps he was having have improved after starting the Baclofen. (Michael Abbott) System Review Comments CONSTITUTIONAL: Patient denies any fever or chills. HEENT: Patient is hard of hearing. He denies any blurry or double vision or any other visual difficulty. RESPIRATORY: Patient denies any shortness of breath, wheezing or productive cough. CARDIOVASCULAR: Patient denies any chest pain, palpitations or irregular heartbeat. GASTROINTESTINAL: Patient denies any abdominal pain, nausea, vomiting or incontinence of stool. GENITOURINARY: Patient has urgency. He denies any incontinence of urine. INTEGUMENTARY: Patient has a cata to the top of the head where he struck it in a fall. He denies any rashes, ulcerations or other lesions. MUSCULOSKELETAL: Patient has weakness below the left knee as well as spasms which have improved. He feels the left arm is stronger. He denies any pain to the neck, back or extremities or any other extremity weakness. NEUROLOGICAL: Patient has weakness below the left knee and some to the left arm. He denies any headache, dizziness, numbness, tingling or other weakness. (Michael Abbott) Exam Results 07/27/17 07/27/17 07/28/17 07/28/17 07/29/17 07/29/17 06:00 18:00 06:00 18:00 06:00 18:00 Intake Total 240 ml 480 ml 740 ml Output Total 400 ml 1045 ml 300 ml 450 ml Balance -160 ml -565 ml -300 ml 290 ml Intake Oral 240 ml 480 ml 740 ml Output Urine Total 400 ml 1045 ml 300 ml 450 ml # Voids 3 3 1 # Bowel Movements 0 0 0 1 Vital Signs Date Time Temp Pulse Resp B/P (MAP) Pulse Ox O2 Delivery O2 Flow Rate FiO2 07/29/17 12:07 97.1 90 18 145/86 (105) 95 07/29/17 08:00 97.4 83 18 141/93 (109) 95 07/29/17 04:40 98.8 72 19 128/80 (96) 96 07/29/17 00:00 97.3 85 18 133/60 (84) 96 07/28/17 20:00 97.2 93 22 149/96 (113) 95 07/28/17 16:00 98.0 84 18 143/88 (106) 95 07/28/17 12:00 97.4 91 18 131/85 (100) 93 07/28/17 08:00 97.2 82 18 140/92 (108) 97 07/28/17 08:00 97.2 82 18 140/97 (111) 92 07/28/17 05:31 97.8 90 20 148/94 (112) 95 07/28/17 00:00 98.3 89 20 137/75 (95) 91 07/27/17 20:43 98.3 102 24 137/73 (94) 94 07/27/17 16:00 98.1 102 18 132/76 (94) 95 07/27/17 12:00 97.5 97 18 135/92 (106) 95 07/27/17 08:00 97.2 106 18 129/75 (93) 94 07/27/17 04:00 98.2 91 18 136/84 (101) 94 07/27/17 00:00 99.0 112 18 100/59 (73) 94 07/26/17 20:00 98.1 119 18 124/79 (94) 94 07/26/17 17:10 97.7 88 17 140/86 (104) 97 07/26/17 14:25 107 18 122/88 (99) 97 Room Air 07/26/17 14:21 18 98 Room Air (Michael Abbott) Physical Examination GENERAL: This is a well-nourished, well-developed male in no apparent distress. Affect is normal. HEENT: Normocephalic, small reddish cata to the right-sided crown NTTP. PERRLA 3 mm brisk, EOMI. MMM & pink, tongue midline to protrusion. NECK: No JVD, trachea midline. RESPIRATORY: CTAB w/o W/R/R, equal excursion, nonlaboured, on RA. CARDIOVASCULAR: S1S2 w/RRR w/o M/G/R, radial & pedal pulses 2+ bilaterally, cap refill < 2 sec, 1+ pedal edema on left. GASTROINTESTINAL: Abdomen rotund, soft, nontender, positive bowel sounds to all quadrants. INTEGUMENTARY: Skin warm & dry, small reddish cata to the right-sided crown, no discolouration, rashes, ulcerations or other lesions. MUSCULOSKELETAL: RAHMAN but decreased on left, no evident deformity or clubbing. NEUROLOGICAL: AAOx3. Speech clear & appropriate. Follows simple commands w/o difficulty. CN II-XII appear grossly intact except for VIII, patient does have a hearing aid in place. Sensation intact to light touch to the extremities. Motor strength: RUE: Deltoid, biceps, triceps, wrist flexors & extensors and hand intrinsics & extrinsics 5/5. RLE: Iliopsoas, quadriceps, hamstrings, tibialis anterior, tibialis posterior , peroneus longus & brevis, gastrocnemius and extensor hallucis longus 5/5. LUE: Deltoid: 5/5; Biceps: 4 to 4+/5; Triceps: 4 to 4+/5; Wrist flexors & extensors: 4+ to 5/5; Hand intrinsics & extrinsics: 4+/5 LLE: Iliopsoas: 5/5; Quadriceps: 4+/5; Hamstrings: 4/5; Tibialis anterior: 1/ 5; Gastrocnemius: 2/5; Extensor hallucis longus: 1/5. (Michael Abbott) Lab, Micro, Other Results Recent Impressions Chest CT 07/27/17 0000 Signed Impressions: Service Date/Time: Thursday, July 27, 2017 08:51 - CONCLUSION: 1. There is a 1 cm pleural-based nodule seen in the posterior aspect of the right lower lobe. This has an appearance most consistent with scarring. Followup exam in 6 months document stability would be warranted. 2. The lungs are otherwise clear. Sunil Duran MD Abdomen/Pelvis CT 07/27/17 0000 Signed Impressions: Service Date/Time: Thursday, July 27, 2017 08:51 - CONCLUSION: 1. There is some scattered low-attenuation lesions within the liver. The largest of these measures approximately 1.7 cm. They're most compatible with simple cysts. 2. No definite findings to indicate metastatic disease to the abdomen are identified. Sunil Duran MD Chest X-Ray 07/26/17 1311 Signed Impressions: Service Date/Time: Wednesday, July 26, 2017 13:47 - CONCLUSION: 1. No acute cardiopulmonary disease. Fran Kay MD Laboratory Tests Test 07/26/17 13:15 07/28/17 08:13 White Blood Count 8.9 TH/MM3 Red Blood Count 5.31 MIL/MM3 Hemoglobin 16.9 GM/DL Hematocrit 48.1 % Mean Corpuscular Volume 90.7 FL Mean Corpuscular Hemoglobin 31.8 PG Mean Corpuscular Hemoglobin Concent 35.0 % Red Cell Distribution Width 14.1 % Platelet Count 261 TH/MM3 Mean Platelet Volume 9.7 FL Neutrophils (%) (Auto) 74.9 % Lymphocytes (%) (Auto) 17.6 % Monocytes (%) (Auto) 6.3 % Eosinophils (%) (Auto) 0.7 % Basophils (%) (Auto) 0.5 % Neutrophils # (Auto) 6.7 TH/MM3 Lymphocytes # (Auto) 1.6 TH/MM3 Monocytes # (Auto) 0.6 TH/MM3 Eosinophils # (Auto) 0.1 TH/MM3 Basophils # (Auto) 0.0 TH/MM3 CBC Comment DIFF FINAL Differential Comment Prothrombin Time 11.0 SEC Prothromb Time International Ratio 1.0 RATIO Activated Partial Thromboplast Time 28.9 SEC Blood Urea Nitrogen 17 MG/DL 25 MG/DL Creatinine 0.86 MG/DL 0.74 MG/DL Random Glucose 216 MG/DL 123 MG/DL Total Protein 7.6 GM/DL Albumin 3.9 GM/DL Calcium Level 8.9 MG/DL 9.3 MG/DL Alkaline Phosphatase 53 U/L Aspartate Amino Transf (AST/SGOT) 20 U/L Alanine Aminotransferase (ALT/SGPT) 34 U/L Total Bilirubin 0.7 MG/DL Sodium Level 137 MEQ/L 137 MEQ/L Potassium Level 3.7 MEQ/L 3.7 MEQ/L Chloride Level 103 MEQ/L 105 MEQ/L Carbon Dioxide Level 25.6 MEQ/L 24.1 MEQ/L Anion Gap 8 MEQ/L 8 MEQ/L Estimat Glomerular Filtration Rate 86 ML/MIN 102 ML/MIN (Michael Abbott) Medical Decision Making Impression and Plan Impression: 1. 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 CT scan chest abdomen and pelvis without significant abnormalities. Physical examination remains improved today with reduced left hemiparesis following Decadron administration. 2. Hyperglycemia, likely related to steroids The patient is doing well and remains essentially stable neurologically Plan: Discussed plan of care with patient and family. Oncology notes reviewed. Plan is for craniotomy for biopsy w/possible tumor resection on . (Michael Abbott) Attending Statement I have personally seen and examined the patient on the date of this note. Pertinent documentation and study results have been reviewed by the undersigned. I have personally developed the treatment plan and performed medical decision making. Agree with findings, exam, and treatment plan as noted above. Discussed findings and treatment options and plan again with the patient. He appears to understand the recommendations, and wishes to proceed with biopsy , possible resection of the right parietal neoplasm tentatively scheduled for . (Chetan Andrade MD) Michael Abbott Jul 29, 2017 13:05 Chetan Andrade MD Jul 31, 2017 18:11
[2017-07-29 16:23] VITALS: BP 163/93; PULSE 88; RESP 19; TEMP 97.3; O2SAT 96
[2017-07-29 20:34] VITALS: BP 154/67; PULSE 78; RESP 20; TEMP 98.1; O2SAT 94
[2017-07-29] MEDS: METHOCARBAMOL 500 MG TAB PO PRN (21:41)
[2017-07-30 01:10] VITALS: BP 150/87; PULSE 102; RESP 20; TEMP 97.6; O2SAT 94
[2017-07-30 04:53] VITALS: BP 143/84; PULSE 75; RESP 20; TEMP 97.3; O2SAT 94
[2017-07-30] MEDS: DEXAMETHASONE SOD PHOS 4 MG/ML VIAL IV PUSH SCH ×3 (05:24→22:48)
[2017-07-30 08:13] VITALS: BP 140/91; PULSE 80; RESP 18; TEMP 97.5; O2SAT 95
[2017-07-30] MEDS ORDERED: LIDOCAINE 2%/EPINEPHrine PF 1:200,000 20ML SDV ONE (08:18)
[2017-07-30] MEDS ORDERED: GENTAMICIN SULFATE 80 MG/2 ML VIAL ONE (08:18)
[2017-07-30] MEDS ORDERED: GELFOAM SIZE 100 ONE (08:18)
[2017-07-30] MEDS ORDERED: THROMBIN (TOPICAL) 5,000 UNIT VIAL ONE (08:18)
[2017-07-30] MEDS ORDERED: FUROSEMIDE 20 MG/2 ML VIAL ONE (08:53)
[2017-07-30] MEDS ORDERED: NITROGLYCERIN-D5W 50 MG/250 ML 0 ML ONE (08:56)
[2017-07-30 08:58] LABS: HEMATOCRIT 45.9 % (39.0-51.0); MEAN CELL VOLUME 90.5 FL (80.0-100.0); MEAN CORPUSCULAR HEMOGLOBIN 31.7 PG (27.0-34.0); PLATELET COUNT 232 TH/MM3 (150-450); RED BLOOD COUNT 5.07 MIL/MM3 (4.50-5.90); RED CELL DISTRIBUTION WIDTH 13.9 % (11.6-17.2); REVIEW FLAG FINAL; WHITE BLOOD COUNT 13.5 TH/MM3 (4.0-11.0)
[2017-07-30] MEDS ORDERED: HYDROCORTISONE SOD SUCCINATE 100 MG VIAL ONE (09:07)
[2017-07-30] MEDS ORDERED: FAMOTIDINE 20 MG/2 ML VIAL ONE (09:07)
[2017-07-30] MEDS ORDERED: ceFAZolin 2 GM PREMIX 50 ML ONE (10:09)
[2017-07-30] MEDS ORDERED: ACETAMINOPHEN 1000 MG/100 ML 100 ML IV ONE (10:15)
[2017-07-30] MEDS ORDERED: ONDANSETRON HCL 4 MG/2 ML VIAL IV PUSH ONE (12:00)
[2017-07-30] MEDS ORDERED: PROPOFOL 200 MG/20 ML AMP IV ONE (12:00)
[2017-07-30] MEDS ORDERED: LIDOCAINE HCL 1% PF 5 ML AMPULE OTHER ONE (12:00)
[2017-07-30] MEDS ORDERED: NEOSTIGMINE 3 MG/3 ML SYR IV ONE (12:00)
[2017-07-30] MEDS ORDERED: LABETALOL HCL 100 MG/20 ML VIAL IV ONE (12:00)
[2017-07-30] MEDS ORDERED: PHENYLEPH/NS 1000 MCG/10 ML SYR IV ONE (12:00)
[2017-07-30] MEDS ORDERED: GLYCOPYRROLATE 1 MG/5 ML SYRINGE IV PUSH ONE (12:00)
[2017-07-30] MEDS ORDERED: PHENYLEPHRINE HCL 10 MG/ML VIAL IV ONE (12:00)
[2017-07-30] MEDS ORDERED: ROCURONIUM INJ 50 MG/5 ML SYRINGE IV PUSH ONE (12:00)
[2017-07-30] MEDS ORDERED: DEXAMETHASONE SOD PHOS 4 MG/ML VIAL IV ONE (12:00)
[2017-07-30] MEDS ORDERED: SODIUM CHLOR 0.9% 1000 ML INJ 1,000 ML IV ONE (12:00)
--- NOTE | 2017-07-30 13:25 | EKG ---
Date Performed: 07/30/2017 Time Performed: 06:17:02 PTAGE: 82 years EKG: Sinus rhythm Inferior T wave changes are nonspecific Borderline ECG PREVIOUS TRACING : 07/26/2017 13.56 Compared to prior tracing no significant change DOCTOR: Spencer Martínez Interpretating Date/Time 07/30/2017 13:23:36
[2017-07-30] MEDS ORDERED: ONDANSETRON HCL 4 MG/2 ML VIAL IV PRN (13:30)
[2017-07-30] MEDS ORDERED: MORPHINE SULFATE 4 MG/ML INJ IV PUSH PRN (13:30)
[2017-07-30] MEDS ORDERED: NALOXONE HCL 0.4 MG/ML AMP IV PUSH PRN (13:30)
[2017-07-30] MEDS ORDERED: HYDROmorphone HCL PF 1 MG/ML VIAL IV PUSH PRN (13:30)
[2017-07-30] MEDS ORDERED: SODIUM CHLORIDE 0.9% FLUSH 5 ML FLUSH IVF PRN (13:30)
[2017-07-30] MEDS ORDERED: ACETAMINOPHEN/HYDROcodone 325 MG/5 MG TAB PO PRN (13:30)
[2017-07-30] MEDS ORDERED: oxyCODONE/ACETAMINOPHEN 10 MG/325 MG TAB PO PRN (13:30)
[2017-07-30] MEDS ORDERED: DO NOT ADM ANY ANTICOAGULANT DRUGS PRN (13:34)
--- NOTE | 2017-07-30 13:37 | PD.OP ---
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 Surgeon: Chetan Andrade Supervisor [employer](s): Uma Giraldo Operation and Findings: Procedure in detail: The patient was brought into the operating room and general endotracheal anesthesia induced without difficulty. Lines were established by anesthesia ERICA hose and sequential compression devices were in place Ames catheter was in place Appropriate timeout procedure was performed with all personal present and in agreement The patient was positioned in supine position with all extremities appropriately padded. The head was placed in the 3-point fixation device and secured to the operating room table with the neck slightly flexed and the head mildly rotated. The BrainLab system was registered with the laser facial registration system and landmarks verified. The BrainLab system was used to cata the initial scalp flap and craniotomy opening, and was further used extensively during the procedure to guide the resection of the neoplasm. The hair overlying the scalp incision was shaved with clippers, and the operative site was sterilely prepped and draped. 1% Xylocaine with epinephrine was used for local infiltration over the incision site which was made in a curvilinear fashion over the right parietal region and carried sharply down to the cranium. The scalp flap was elevated with the periosteal elevator and retracted with large scalp hooks. The reeling operator was used to place a bur hole adjacent to the midline, and the craniotome was used to incise the bone flap. 4-0 Nurolon dural tack up sutures placed through wire passing holes made along the edge of the craniotomy site were used as needed. The dura was opened in a cruciate fashion and the edges retracted with 4-0 Nurolon suture. There was moderate brain edema noted upon opening the dura. Patient was given Decadron as needed during the procedure . An initial frozen section of the neoplasm was sent to pathology prior to resection of the main mass of the neoplasm, with initial frozen section indicating findings consistent with glioblastoma per pathology report. It was thus elected to proceed with further resection of the main portion of the lesion. The borders of the neoplasm at the cortical surface were delineated using the structural variations of the neoplasm from the surrounding parenchyma as well as with the intraoperative stereotactic navigation system. The parenchyma overlying the neoplasm was opened with the bipolar forceps. The neoplasm was circumferentially from the surrounding tissue with the [place] dissectors and the bipolar forceps with any bridging vessels coagulated with the bipolar forceps and incised with the microscissors. Any major vascular structures were carefully preserved. Cottonoid patties were used as needed to maintain the resection plane surrounding the tumor. Once the periphery of the tumor was delineated, the base of the neoplasm was released with the [place] dissectors, and the majority of the neoplasm removed and a single section. The periphery of the tumor site was then carefully inspected for any residual neoplasm which was carefully removed with the bipolar forceps and gentle suction. The tumor resection site was carefully examined and bleeding carefully controlled. There was no significant bleeding at the time of closure. The brain was soft and pulsatile at the time of closure The closure was performed with 4-0 Nurolon interrupted and running for the dura , titanium maxillofacial plates and screws to secure the bone flap, 2-0 Vicryl for the galeal closure, [place] for the skin closure. A dressing of sterile Telfa, 4 x 4's, and a head stockinette were placed. The patient was turned back into supine position on the operating room table The 3-point head fixation device was removed The patient was taken to recovery room in stable condition All counts were correct at the end of the case Estimated blood loss was 100 cc. Specimen of the neoplasm was sent to pathology for permanent section Chetan Andrade MD Jul 30, 2017 13:37
[2017-07-30] MEDS ORDERED: LABETALOL HCL 100 MG/20 ML VIAL IV PRN (13:45)
[2017-07-30] MEDS ORDERED: cloNIDine HCL 0.1 MG TAB PO PRN (13:45)
[2017-07-30] MEDS ORDERED: ENALAPRILAT 1.25 MG/ML VIAL IV PUSH PRN (13:45)
[2017-07-30] MEDS ORDERED: *ENALAPRILAT 1.25 MG/ML VIAL PERIprocedural Use ONLY ONE (13:59)
[2017-07-30] MEDS: 1/2 NS + KCL 20 MEQ INJ 1,000 ML IV SCH ×2 (15:38→23:26)
[2017-07-30] MEDS: INSULIN NovoLIN REGULAR SUPPLEMENTAL SCALE SQ SCH ×2 (16:21→20:56)
[2017-07-30] MEDS: DOCUSATE SODIUM 100 MG CAP PO SCH (20:45)
[2017-07-30] MEDS: SODIUM CHLORIDE 0.9% FLUSH 5 ML FLUSH IVF SCH (20:45)
[2017-07-30 21:36] VITALS: BP 130/80; PULSE 68; RESP 25; TEMP 97.9; O2SAT 96
[2017-07-31] VITALS (11 sets, daily range): BP systolic 93–147; BP diastolic 57–89; PULSE 60–100; RESP 15–27; TEMP 97.8–98.3; O2SAT 93–96
[2017-07-31] MEDS: 1/2 NS + KCL 20 MEQ INJ 1,000 ML IV SCH ×2 (02:39→20:48)
[2017-07-31] MEDS: DEXAMETHASONE SOD PHOS 4 MG/ML VIAL IV PUSH SCH ×3 (06:00→21:01)
[2017-07-31 06:05] LABS: AUTOMATED NEUTROPHIL # 14.6 TH/MM3 (1.8-7.7); BASOPHIL % 0.2 % (0.0-2.0); HEMATOCRIT 43.9 % (39.0-51.0); HEMO FLAGS DIFF FINAL; LYMPH % 5.5 % (9.0-44.0); LYMPHOCYTE # 0.9 TH/MM3 (1.0-4.8); MEAN CELL VOLUME 90.5 FL (80.0-100.0); MEAN CORPUSCULAR HGB CONC 34.3 % (32.0-36.0); MONO % 9.2 % (0.0-8.0); NEUT % 85.1 % (16.0-70.0); PLATELET COUNT 216 TH/MM3 (150-450); RED BLOOD COUNT 4.86 MIL/MM3 (4.50-5.90); WHITE BLOOD COUNT 17.1 TH/MM3 (4.0-11.0)
--- NOTE | 2017-07-31 06:29 | RADRPT ---
EXAM DATE/TIME: 07/31/2017 05:18 [facility] COMPARISON: MRI BRAIN W & W/O CONTRAST, July 26, 2017, 16:04. INDICATIONS : Post-op tumor resection. RADIATION DOSE: 52.50 CTDIvol (mGy) MEDICAL HISTORY : None SURGICAL HISTORY : Craniotomy. Vasectomy. ENCOUNTER: Initial ACUITY: 1 day PAIN SCALE: Non-responsive LOCATION: cranial TECHNIQUE: Multiple contiguous axial images were obtained of the head. Using automated exposure control and adj ustment of the mA and/or kV according to patient size, radiation dose was kept as low as reasonably a chievable to obtain optimal diagnostic quality images. DICOM format image data is available electro nically for review and comparison. FINDINGS: There has been right frontal craniotomy near the vertex. Postoperative changes are present in the hig h convexity paramedian frontal brain pneumocephalus and minimal hemorrhagic density adjacent to an ar ea of vasogenic edema. The brain is elsewhere fairly symmetric and benign. Nothing to suggest acute i nfarction. Stable symmetric mild ventriculomegaly. CONCLUSION: Postoperative changes in the right frontal region. Blayne Patton MD on July 31, 2017 at 6:25 Board Certified Radiologist. This report was verified electronically.
[2017-07-31 06:44] LABS: BICARBONATE 23.6 MEQ/L (21.0-32.0)
[2017-07-31] MEDS: INSULIN NovoLIN REGULAR SUPPLEMENTAL SCALE SQ SCH ×4 (08:00→21:00)
--- NOTE | 2017-07-31 08:47 | HHI.NSPN ---
(Michael Abbott) History Chief Complaint: Doing well although left foot still weak. (Michael Abbott) Interval History 07/26: This is an 82-year-old male who presents to the emergency department at [facility] after having been encouraged to come to this facility following abnormal findings on an MRI of the brain yesterday () at [facility]. Per the EMR the MRI demonstrated a posterior right frontal lobe mass with vasogenic edema extending into the anterior right parietal lobe. There is associated local mass effect with effacement but no midline shift. The mass was suspicious for either a primary or metastatic malignancy. He also had an MRI of the lumbar spine that demonstrated multilevel degenerative changes. The patient reports a history of weakness to the left lower extremity below the knee for the past month as well as spasms to the area. He denies any pain, numbness or tingling associated with this. He denies any weakness to the left upper extremity but was told that when he has been evaluated some weakness had been noted. His and son report that there is swelling and coolness to the area as well. He does report four falls within the past month as well as one in April of this year. His son states that the patient does have difficulty getting up which the patient endorses. The patient was seen by Dr Cervantes (Neurology) for the weakness and he ordered the outpatient MRI. He does report a remote history of prostate cancer for which he was treated and that for the past ten years his PSA level was less than 0.5. 07/29: The patient is sitting in the chair with his family in the room. He says he is doing good this afternoon. He reports that he still has the weakness of the left but does feel the upper extremity is stronger. He states that the muscle spasms/cramps he was having have improved after starting the Baclofen. 07/31: The patient went for a biopsy and craniotomy yesterday morning. Post- operatively he was admitted to [facility]. When seen this morning the patient is awake and alert, sitting up in a chair watching TV. He states that he feels pretty good. He has no complaints. He reports that he was unsteady with the left foot when getting up using the walker. He still has weakness to the left foot. He denies any headache but does report some pain if he yawns or something else that will stretch the skin at the surgical site. The patient did have a repeat CT brain this morning which demonstrated post-operative changes but was otherwise stable. (Michael Abbott) System Review Comments CONSTITUTIONAL: Patient denies any fever or chills. HEENT: Patient denies any visual or hearing problems. RESPIRATORY: Patient denies any shortness of breath, wheezing or productive cough. CARDIOVASCULAR: Patient denies any chest pain, palpitations or irregular heartbeat. GASTROINTESTINAL: Patient denies any abdominal pain, nausea, vomiting or incontinence of stool. GENITOURINARY: Patient denies any incontinence of urine. INTEGUMENTARY: Patient with surgical incision to the scalp. He denies any rashes , ulcerations or other lesions. MUSCULOSKELETAL: Patient still weak below the left knee. He denies any pain to the neck, back or extremities or any other extremity weakness. NEUROLOGICAL: Patient still weak below the left knee. He denies any headache, dizziness, numbness, tingling or other weakness. (Michael Abbott) Exam Results 07/29/17 07/29/17 07/30/17 07/30/17 07/31/17 07/31/17 06:00 18:00 06:00 18:00 06:00 18:00 Intake Total 740 ml 480 ml 1350 ml 1975 ml Output Total 450 ml 200 ml 525 ml 750 ml 2725 ml Balance 290 ml 280 ml -525 ml 600 ml -750 ml Intake Oral 740 ml 480 ml 150 ml 975 ml IV Total 1000 ml Other 1200 ml Output Urine Total 450 ml 200 ml 525 ml 650 ml 2725 ml Stool Total 0 ml Estimated Blood Loss 100 ml # Voids 1 4 # Bowel Movements 1 Vital Signs Date Time Temp Pulse Resp B/P (MAP) Pulse Ox O2 Delivery O2 Flow Rate FiO2 07/31/17 06:00 82 07/31/17 04:00 80 07/31/17 04:00 98.1 80 15 127/79 (95) 93 93/68 (76) 07/31/17 02:00 65 07/31/17 00:13 19 07/31/17 00:00 98.0 60 16 109/63 (78) 96 109/57 (74) 07/30/17 21:36 97.9 68 25 130/80 (97) 96 07/30/17 21:00 88 18 119/72 (88) 97 Room Air 07/30/17 20:30 87 18 122/66 (84) 97 Room Air 07/30/17 20:00 84 19 127/69 (88) 97 Room Air 07/30/17 19:15 97.7 91 19 139/63 (88) 97 Room Air 07/30/17 19:00 75 17 129/65 (86) 97 Room Air 07/30/17 18:00 85 19 121/53 (75) 97 Room Air 07/30/17 17:00 65 16 118/72 (87) 98 Room Air 07/30/17 16:00 79 12 149/79 (102) 98 Room Air 07/30/17 15:00 60 13 126/65 (85) 97 Nasal Cannula 2 07/30/17 14:30 68 15 123/70 (87) 97 Nasal Cannula 2 07/30/17 14:15 66 14 133/61 (85) 96 Nasal Cannula 2 07/30/17 14:00 65 15 135/79 (97) 96 Nasal Cannula 3 07/30/17 13:45 110 20 144/77 (99) 97 Nasal Cannula 3 07/30/17 13:33 97.4 78 16 139/78 (98) 94 Simple Mask 6 07/30/17 08:13 97.5 80 18 140/91 (107) 95 07/30/17 04:53 97.3 75 20 143/84 (103) 94 07/30/17 01:10 97.6 102 20 150/87 (108) 94 07/29/17 20:34 98.1 78 20 154/67 (96) 94 07/29/17 16:23 97.3 88 19 163/93 (116) 96 07/29/17 12:07 97.1 90 18 145/86 (105) 95 07/29/17 08:00 97.4 83 18 141/93 (109) 95 07/29/17 04:40 98.8 72 19 128/80 (96) 96 07/29/17 00:00 97.3 85 18 133/60 (84) 96 07/28/17 20:00 97.2 93 22 149/96 (113) 95 07/28/17 16:00 98.0 84 18 143/88 (106) 95 07/28/17 12:00 97.4 91 18 131/85 (100) 93 (Michael Abbott) Physical Examination GENERAL: The patient is doing well and sitting up in a chair. He readily interacts and smiles. He is in no apparent distress. HEENT: Normocephalic, intact dressing to scalp surgical incision. PERRLA 2 mm brisk, EOMI. MMM & pink, tongue midline to protrusion. NECK: No JVD, trachea midline. RESPIRATORY: CTAB w/o W/R/R, equal excursion, nonlaboured, on RA. CARDIOVASCULAR: S1S2 w/RRR w/o M/G/R, radial & pedal pulses 2+ bilaterally, cap refill < 2 sec, 1+ pedal edema on left. Monitor is sinus rhythm w/o any ectopy. GASTROINTESTINAL: Abdomen rotund, soft, nontender, bowel sounds not appreciated. INTEGUMENTARY: Skin warm & dry, intact dressing to scalp surgical incision, no discolouration, rashes, ulcerations or other lesions. MUSCULOSKELETAL: RAHMAN but decreased to LLE, no evident deformity or clubbing. NEUROLOGICAL: AAOx3. Speech clear & appropriate. Follows simple commands w/o difficulty. CN II-XII appear grossly intact except for VIII, patient does have a hearing aid in place. Sensation intact to light touch to the extremities. Motor strength: RUE: Deltoid, biceps & triceps 5/5. RLE: Iliopsoas, quadriceps, hamstrings, tibialis anterior, tibialis posterior , peroneus longus & brevis, gastrocnemius and extensor hallucis longus 5/5. LUE: Deltoid: 5/5; Biceps: 4+/5; Triceps: 4+/5. LLE: Iliopsoas: 5/5; Quadriceps: 4+/5; Hamstrings: 4/5; Tibialis anterior: 1/ 5; Gastrocnemius: 2/5; Extensor hallucis longus: 1/5. (Michael Abbott) Lab, Micro, Other Results Recent Impressions Head CT 07/31/17 0600 Signed Impressions: Service Date/Time: Monday, July 31, 2017 05:18 - CONCLUSION: Postoperative changes in the right frontal region. Blayne Patton MD Laboratory Tests Test 07/30/17 08:22 07/31/17 01:22 07/31/17 05:40 White Blood Count 13.5 TH/MM3 17.1 TH/MM3 Red Blood Count 5.07 MIL/MM3 4.86 MIL/MM3 Hemoglobin 16.1 GM/DL 15.1 GM/DL Hematocrit 45.9 % 43.9 % Mean Corpuscular Volume 90.5 FL 90.5 FL Mean Corpuscular Hemoglobin 31.7 PG 31.0 PG Mean Corpuscular Hemoglobin Concent 35.0 % 34.3 % Red Cell Distribution Width 13.9 % 14.0 % Platelet Count 232 TH/MM3 216 TH/MM3 Mean Platelet Volume 10.4 FL 10.5 FL Nasal Screen MRSA (PCR) MRSA NOT DETECTED Neutrophils (%) (Auto) 85.1 % Lymphocytes (%) (Auto) 5.5 % Monocytes (%) (Auto) 9.2 % Eosinophils (%) (Auto) 0.0 % Basophils (%) (Auto) 0.2 % Neutrophils # (Auto) 14.6 TH/MM3 Lymphocytes # (Auto) 0.9 TH/MM3 Monocytes # (Auto) 1.6 TH/MM3 Eosinophils # (Auto) 0.0 TH/MM3 Basophils # (Auto) 0.0 TH/MM3 CBC Comment DIFF FINAL Differential Comment Blood Urea Nitrogen 23 MG/DL Creatinine 0.74 MG/DL Random Glucose 125 MG/DL Calcium Level 8.4 MG/DL Sodium Level 137 MEQ/L Potassium Level 4.0 MEQ/L Chloride Level 106 MEQ/L Carbon Dioxide Level 23.6 MEQ/L Anion Gap 7 MEQ/L Estimat Glomerular Filtration Rate 102 ML/MIN (Michael Abbott) Medical Decision Making Impression and Plan Impression: 1. 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 CT scan chest abdomen and pelvis without significant abnormalities. Physical examination remains improved today with reduced left hemiparesis following Decadron administration. 2. 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 Repeat CT brain this morning demonstrates post-operative changes, otherwise stable. POD #1 () s/p: Craniotomy for biopsy & resection of mass. Plan: Discussed plan of care with patient. Frequent neuro checks. Mobilise patient w/assistance. PT/OT eval & tx. Advance diet as tolerated. (Michael Abbott) Attending Statement I have personally seen and examined the patient on the date of this note. Pertinent documentation and study results have been reviewed by the undersigned. I have personally developed the treatment plan and performed medical decision making. Agree with findings, exam, and treatment plan as noted above. Stable postop day #1. Left upper extremity motor function improved postoperatively. Still with mostly 1-to/5 distal left lower extremity motor function, 4/5 proximal left lower extremity motor strength. Dressing dry and intact. 07/31/[address] scan without significant hemorrhage. No increased edema or mass effect. Discussed with patient today as well as with his on the telephone. Anticipate discharge to inpatient rehabilitation on 08/01/17 when arrangements made. (Chetan Andrade MD) Michael Abbott Jul 31, 2017 08:47 Chetan Andrade MD Jul 31, 2017 18:12
[2017-07-31] MEDS: DOCUSATE SODIUM 100 MG CAP PO SCH ×3 (09:00→20:46)
[2017-07-31] MEDS: SODIUM CHLORIDE 0.9% FLUSH 5 ML FLUSH IVF SCH ×2 (09:00→21:00)
[2017-07-31] MEDS: PANTOPRAZOLE SOD 40 MG DELAYED RELEASE TAB PO SCH (09:20)
--- NOTE | 2017-07-31 18:10 | HHI.DCPOC ---
Discharge Care Plan Diagnosis: (1) Intracranial mass Your Health Problems Are: Difficulty with ADL Incision/Drains Exercise Tolerance Loss of Movements Goals to Promote Your Health * To prevent worsening of your condition and complications * To maintain your health at the optimal level Directions to Meet Your Goals Take your medications as prescribed Follow your dietary instruction Follow activity as directed Keep your appointments as scheduled Take your immunizations and boosters as scheduled If your symptoms worsen call your PCP, if no PCP go to Urgent Care Center or Emergency Room Smoking is Dangerous to Your Health. Avoid second hand smoke Call the 24-hour hour crisis hotline for domestic abuse at Chetan Andrade MD Jul 31, 2017 18:10
[2017-08-01] VITALS: BP 139/77; PULSE 92; RESP 18; TEMP 98; O2SAT 92
[2017-08-01] MEDS: 1/2 NS + KCL 20 MEQ INJ 1,000 ML IV SCH (05:11)
[2017-08-01] MEDS: DEXAMETHASONE SOD PHOS 4 MG/ML VIAL IV PUSH SCH (05:12)
[2017-08-01 05:14] VITALS: BP 139/82; PULSE 95; RESP 18; TEMP 98.6; O2SAT 95
[2017-08-01 07:42] VITALS: BP 159/85; PULSE 99; RESP 20; TEMP 97.9; O2SAT 93
[2017-08-01] MEDS: INSULIN NovoLIN REGULAR SUPPLEMENTAL SCALE SQ SCH (08:00)
[2017-08-01] MEDS: DOCUSATE SODIUM 100 MG CAP PO SCH (08:27)
[2017-08-01] MEDS: SODIUM CHLORIDE 0.9% FLUSH 5 ML FLUSH IVF SCH (08:27)
[2017-08-01] MEDS: PANTOPRAZOLE SOD 40 MG DELAYED RELEASE TAB PO SCH (08:27)
--- NOTE | 2017-08-08 06:49 | RC ---
cc: OWEN COBURN,LEN RAMIREZ M.D., M.D., DR., LATIF, ZAFAR MD ALVAREZ-FARINETTI, ALVARO MD GUIDO, J. CHRISTIAN MD DATE OF 1935 DATE OF CONSULTATION 08/07/2017 DIAGNOSIS GBM of the brain. Stage N/A. CHIEF COMPLAINT Brain mass on MRI, difficulty moving left foot from the ankle down. REASON FOR VISIT The patient is being evaluated for adjuvant postoperative radiotherapy for GBM status post resection. HISTORY OF PRESENT ILLNESS This is an 82-year-old white male actually known to me as I treated him with radiation therapy for his prostatic carcinoma. The patient has been stable since being diagnosed with prostatic carcinoma with no evidence of disease. The patient stated that recently he started experiencing issues with numbness of the toes of the left foot which eventually progressed to not being able to move his left foot up and down and his left foot [id number] and then he lost of function from the knee down. As a result of this he was evaluated Dr. Cervantes who did an MRI of the brain which showed a brain mass. He was referred to the ER and on evaluation over here was noted to have also difficulty moving his left upper arm. Dr. Andrade performed surgical resection on 07/30/2017 which is now positive for the above-mentioned diagnosis. The patient is being evaluated by Dr. Conklin and Dr. Conklin has given his recommendations for concomitant postoperative radiation and chemotherapy. The patient has now been referred to me for discussion of adjuvant postoperative radiotherapy. I have discussed this case today with the oncology nurse practitioner. PAST MEDICAL HISTORY As above. No history of any eye problems or hearing problems or dental issues. No cardiac disorder, hypertension, respiratory disorders. History of snoring. History of disorders. History of radiation therapy and for his prostatic carcinoma. He has had chickenpox and measles. MEDICATIONS 1. Dexamethasone. 2. Pepcid. 3. Mellisa-Colace. 4. Theragran. 5. Tylenol. 6. [place]. 7. Catapres. 8. Robaxin. 9. Zofran. 10. Lactulose. ALLERGIES No known drug allergies. FAMILY HISTORY No history of carcinoma in the family. SOCIAL HISTORY The patient denies any smoking history. EtOH intake socially. REVIEW OF SYSTEMS CONSTITUTIONAL: The patient denies any loss or decrease in appetite previous to this. ALLERGIC: Has not had any allergic reaction recently. EYES: Unremarkable. ENT: Unremarkable. NECK: Unremarkable. INTEGUMENTARY: Unremarkable. CARDIOVASCULAR: Unremarkable. Denies any chest pain or clinical signs of ME. RESPIRATORY: Unremarkable. He denies any cough or hemoptysis. GASTROINTESTINAL: Unremarkable. GENITOURINARY: Urgency with urination. Denies any hematuria. MUSCULOSKELETAL: The patient with decreased range of motion of the left upper arm as well as weakness of the left leg, getting better with therapy. NEUROLOGICAL: The patient denies any signs or symptoms of a stroke. As mentioned, with the deficits of moving the left upper arm and the left leg. PSYCHIATRIC: Denies any suicidal thoughts or depression. ENDOCRINE: Unremarkable. NEUROLOGIC: Unremarkable. DERMATOLOGIC: Unremarkable. PHYSICAL EXAMINATION GENERAL: The patient is alert and oriented x3, in no acute distress at the present time. VITAL SIGNS: Temperature 97.6, pulse 92, respiratory rate 20, blood pressure 141/85, pulse ox 95% on room air. BACK: To palpation and percussion of the posterior back, no pain was elicited. LUNGS: The lungs were clear to auscultation with good ventilatory respiratory effort. HEART: Regular in rate and rhythm, without murmur. NECK: Palpation of the neck and bilateral supraclavicular areas are free. ABDOMEN: To palpation of the abdominal cavity, there was no hepatosplenomegaly and no pain elicited. EXTREMITIES: No lower extremity edema detected. There is decreased range of motion and weakness of the left leg. The right leg is unremarkable. The right upper arm unremarkable with excellent range of motion. The left arm with limited range of motion and weakness. NEUROLOGICAL: The neurological deficits as mentioned above. No decrease in cognitive functions. No changes in memory. No other positive findings. RADIOLOGY CT OF THE HEAD on 08/06/2017. IMPRESSION: Resolution of previously seen right frontal lobe slight hemorrhage, otherwise no significant change. CT OF THE BRAIN on 07/31/2017. IMPRESSION: Postoperative changes. CT OF THE ABDOMEN AND PELVIS on 07/27/2017. IMPRESSIO: There are some scattered low-attenuation lesions in the liver. No definite findings to indicate metastatic disease of the abdomen identified. CT OF THE CHEST on 07/27/2017. IMPRESSION: There is a 1-cm pleural-based nodule seen in the posterior aspect of the right lower lobe. It has an appearance most consistent with scarring. Lungs are otherwise clear. MRI OF THE BRAIN on 07/26/2017. IMPRESSION: A 3.7 x 2.2 x 3.3 cm extra-axial enhancing mass in the right medial posterior parietal high convexities with an adjacent, small 2.1 x 2.5-cm satellite lesion and moderate associated edema. No evidence of meningeal extension or carcinomatosis. No hydrocephalus or significant hemorrhage. SURGICAL PATHOLOGY on 07/30/2017. Right parietal neoplasm. 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 Right brain neoplasm on biopsy consistent with glioblastoma multiforme. ASSESSMENT An 82-year-old white male with diagnosis of GBM, status post surgical resection. The patient is being evaluated for radiotherapy treatment options postoperatively. PLAN I had an extensive discussion with the patient and the in regards to his present condition. I have discussed this case with Mariah today and have asked to see if she could order an MRI of the brain for me tomorrow. The patient accepted to have the MRI. The patient was advised of the treatment options of radiation therapy, the purpose and merits of postoperative radiation therapy in a GBM setting. We discussed side effects and complications of radiation therapy to include but not limited to - weakness and fatigue, edema of the skin, necrosis of the skin, loss of hair which will be permanent, bone damange, brain damage, brain leukoencephalopathy, changes in short-term and long-term memory, swelling of the brain, brain necrosis which may require the prolonged use of steroids and surgery, decreased hearing, loss of hearing, decreased vision, loss of vision, nausea and vomiting. After our discussion the patient understood everything that was explained. He wanted to move forward with treatment. Plans are to start within four weeks of his surgical resection if there is no complication. I will plan to simulate next week the patient. We will also review the MRI following the performance of that. The patient is advised, if I could be of any further assistance to please let me know, otherwise we will proceed as above. Dr. Conklin, thank you much for the referral of this patient and allowing me to participate in his care. Should you have any further questions or concerns, please do not hesitate to contact me. Victor Hugo Carreno MD Radiation Oncologist LAURA ANDREW/WENDY /4:51 PM /5:55 AM MTDD
[2017-08-13] MEDS ORDERED: MULTTAB67 PO (09:19)
[2017-08-13] MEDS ORDERED: DEXA4TAB PO (09:19)
[2017-08-13] MEDS ORDERED: METH500T3 PO (09:19)
[2017-08-13] MEDS ORDERED: FAMO20TA2 PO (09:19)
[2017-08-13] MEDS ORDERED: GETGO ROLLING W1 MI1 (14:06)
[2017-08-13] MEDS ORDERED: WHEEMIS3 (14:06)
== END 2017-08-01 11:59 | DRG 25 ==
LOC: NEPC 12:43 → NEDA 13:50 → N05B 16:35 → N03B 07-30 10:01 → N03A 07-30 21:42 → N05A 07-31 18:16
PROVIDERS: ADMIT Neurological Surgery; ATTEND Neurological Surgery
PROC: 00B00ZZ Excision of Brain, Open Approach (ICD-10-PCS; principal; 2017-07-30 10:15)
DX: C71.3 Malignant neoplasm of parietal lobe (principal); G93.6 Cerebral edema; G81.94 Hemiplegia, unspecified affecting left nondominant side; H91.90 Unspecified hearing loss, unspecified ear; K21.9 Gastro-esophageal reflux disease without esophagitis; I10 Essential (primary) hypertension; T38.0X5A Adverse effect of glucocorticoids and synthetic analogues, initial encounter; R73.9 Hyperglycemia, unspecified; Z85.46 Personal history of malignant neoplasm of prostate
CPT/HCPCS: 70450; 70553; 71010; 71260; 74177; 80048; 80053; 82948; 85025; 85027; 85610; 85730; 86850; 86900; 86901; 87641; 88307; 88331; 93005; A9579; C1713; J0131; J0690; J1100; J1580; J1720; J1940; J2370; J2405; J2710; J3010; J7030; Q9967